=== PATIENT | male | born 1950 | race Caucasian/White ===

== ENCOUNTER 2025-01-17 06:55 | Day surgery (SDC) | payer BC, OTHER ==
[2025-01-14 15:56] LABS: Absolute Lymphocytes (CBC) 2.1 K/uL (0.7-4.9); Hematocrit 39.8 % (39.6-49.0); Hemoglobin 14.0 g/dL (13.6-17.9); MCH 30.1 pg (27.0-35.0); MCHC 35.1 g/dL (32.0-36.0); MCV 85.6 fL (80-100); MPV 9.2 fL (7.6-11.3); Nucleated RBC Absolute Count 0.0 (0-0); Nucleated Red Blood Cells % 0.1 % (0-0); RBC Red Blood Cell Count 4.65 M/uL (4.33-5.43); White Blood Count 6.90 thou/uL (4.3-10.9)
[2025-01-14 16:16] LABS: Anion Gap 7.3 mEq/L (5.0-15.0); BUN Blood Urea Nitrogen 22.0 mg/dL (7-18); Glucose Level 118.0 mg/dL (74-106)
[2025-01-14 16:17] LABS: Potassium 3.3 mEq/L (3.5-5.1)
[2025-01-17] MEDS: NA CHLORIDE 0.9% 1,000 ML ONE (07:20)
[2025-01-17] MEDS ORDERED: LIDOCAINE 1% MPF 5 ML VIAL ONE (08:31)
[2025-01-17 09:44] VITALS: TEMP 97.3
[2025-01-17 09:54] VITALS: BP 119/57; O2SAT 100
== END 2025-01-17 09:58 | disposition home or self-care (01) ==
LOC: OR 06:55
PROVIDERS: ATTEND Surgery
PROC: 0DBL8ZX Excision of Transverse Colon, Via Natural or Artificial Opening Endoscopic, Diagnostic (ICD-10-PCS; 2025-01-17)
PROC: 0DBM8ZX Excision of Descending Colon, Via Natural or Artificial Opening Endoscopic, Diagnostic (ICD-10-PCS; 2025-01-17)
PROC: 0DBK8ZX Excision of Ascending Colon, Via Natural or Artificial Opening Endoscopic, Diagnostic (ICD-10-PCS; principal; 2025-01-17 08:30)
DX: Z12.11 Encounter for screening for malignant neoplasm of colon (principal); N42.9 Disorder of prostate, unspecified; K64.8 Other hemorrhoids; D12.2 Benign neoplasm of ascending colon; D12.3 Benign neoplasm of transverse colon; K63.5 Polyp of colon
CPT/HCPCS: 45380; 93005; 85025; 80048; 36415; 82947; 88305; J2704; J2003; J7030; 88304